=== PATIENT | female | born 1990 | race American Indian/Alaskan Native ===

== ENCOUNTER 2016-07-18 14:54 | Emergency (ER) | payer SELFPAY ==
--- NOTE | 2016-07-18 16:16 | Emergency Department Report ---
Entered by TOYA SHEIKH, acting as scribe for CISCO GEIGER PA. Chief Complaint: Headache Stated Complaint: LT SIDE PAIN HEAD/SHOULDER Time Seen by Provider: 07/18/16 16:00 - HPI History of Present Illness: Patient presents to the ED c/o left facial swelling and pain that began 2 weeks ago. Rates pain a 10/10 in severity. Pt states the pain radiates from left ear down to shoulder. Reports headache. Denies nausea, vomiting, fever, and chills. Notes that the pain "caused a seizure". Notes she went to [facility] 1 month ago for the same complaint and a head CT scan was performed, which was normal. Notes dentist appointment in August 2016. - ROS Review of Systems: All system are negative unless stated in HPI above. - Exam Vital Signs: Vital Signs 07/18/16 15:42 Temperature 98.1 F Pulse Rate 82 Respiratory 18 Rate Blood Pressure 163/98 O2 Sat by Pulse 98 Oximetry Physical Exam: General: well nourished, well developed, nontoxic in appearance, in no acute distress ENT: Bilateral TM is congested with no erythema, no pharyngeal erythema, uvula is midline, no tonsillar exudates, left oral mucosa swollen, missing tooth on lower left side Neck: mild swelling on left side MSE screening note: Focused history and physical exam performed. Due to findings the following was ordered: ED Medical Decision Making - Medical Decision Making Medical decision making: Patient seen by provider in triage area. Appropriate protocol activated and patient to main ED to be seen by physician. ED Disposition for MSE Condition: Stable This documentation as recorded by the scribe,TOYA SHEIKH,accurately reflects the service I personally performed and the decisions made by FELY fox VERONA A, PA.
[2016-07-18 17:09] LABS: Anion Gap 15 mmol/L; Blood Urea Nitrogen 9 mg/dL (7-17); Calcium 9.1 mg/dL (8.4-10.2); Carbon Dioxide 28 mmol/L (22-30); Chloride 98.3 mmol/L (98-107); Glucose 136 mg/dL (65-100); Potassium 4.1 mmol/L (3.6-5.0); Sodium 137 mmol/L (137-145)
[2016-07-18 17:10] LABS: Basophils % (Auto) 0.5 % (0.0-1.8); Eosinophils % (Auto) 5.5 % (0.0-4.3); Hematocrit 34.5 % (30.3-42.9); Hemoglobin 10.7 gm/dl (10.1-14.3); Mean Corpuscular HGB Conc 31 % (30-34); Mean Corpuscular Volume 72 fl (79-97); Platelet Count 317 K/mm3 (140-440); Red Blood Count 4.79 M/mm3 (3.65-5.03); Red Cell Distribution Width 18.6 % (13.2-15.2); White Blood Count 10.8 K/mm3 (4.5-11.0)
[2016-07-18 17:15] LABS: Mean Corpuscular Hemoglobin 22 pg (28-32)
[2016-07-18] MEDS ORDERED: CLEOCIN PO ONE (21:02)
[2016-07-18] MEDS ORDERED: TYLENOL PO ONE (21:02)
--- NOTE | 2016-07-18 21:11 | Emergency Department Report ---
HPI - General Chief Complaint: Headache Time Seen by Provider: 07/18/16 16:13 - HPI HPI: The patient's a 26-year-old female presents for evaluation of headache and face pain. The patient reports headache for the past 2 weeks, on and off, 8/10 in severity, aching in quality, exacerbated with bright lights. The patient also reports greater than one month of left lower jaw and facial pain, moderate to severe, exacerbated with chewing or testing of the face, sharp in quality. She says that she received evaluation of her facial and jaw pain at [place] [facility] with week ago. She states that she received a CT scan of the face that was unremarkable. The patient denies fever, head injury, neck stiffness, hoarseness of the voice, difficulty tolerating secretions, vision or hearing changes, smell or taste changes, paresthesias, facial drooping, slurred speech, or other focal neurological deficit. ED Past Medical Hx - Past Medical History Hx Hypertension: Yes Hx CVA: No Hx Heart Attack/AMI: No Hx Congestive Heart Failure: No Hx Diabetes: Yes Hx Deep Vein Thrombosis: No Hx Pulmonary Embolism: No Hx GERD: No Hx Liver Disease: No Hx Renal Disease: No Hx Sickle Cell Disease: No Hx Arthritis: No Hx Headaches / Migraines: No Hx Seizures: No Hx Kidney Stones: No Hx Psychiatric Treatment: No Hx Asthma: No Hx COPD: No Hx Tuberculosis: No Hx Dementia: No Hx HIV: No Additional medical history: Obesity - Surgical History Hx Coronary Stent: No Hx Open Heart Surgery: No Hx Pacemaker: No Hx Internal Defibrillator: No Hx Cholecystectomy: No Hx Appendectomy: No Hx Breast Surgery: No Additional Surgical History: t&a - Social History Smoking Status: Never Smoker Substance Use Type: None - Medications Home Medications: Home Medications Medication Instructions Recorded Confirmed Last Taken Type Insulin Glargine [Lantus] 10 unit SUB-Q QHS 05/30/15 05/30/15 1 Day Ago History Insulin Lispro [Humalog] 10 unit SQ BID 05/30/15 05/30/15 1 Day Ago History Losartan [Cozaar] 50 mg PO QDAY 05/30/15 05/30/15 1 Day Ago History Albuterol Sulfate [Ventolin HFA] 2 puff IH Q4H PRN #1 hfa.aer.ad 07/02/15 Unknown Rx Azithromycin [Zithromax] 250 mg PO DAILY #1 pkg 07/02/15 Unknown Rx Gentamicin 0.3% Ophth Soln 2 drops OP Q4H #1 bottle 07/02/15 Unknown Rx Dicyclomine [Bentyl] 10 mg PO QID PRN #20 capsule 07/08/15 Unknown Rx Ondansetron [Zofran Odt] 4 mg PO QID PRN #20 tab.rapdis 07/08/15 Unknown Rx Chlorhexidine Mouthwash [Peridex] 15 ml MM BID #1 bottle 07/18/16 Unknown Rx Clindamycin [Clindamycin CAP] 450 mg PO TID #60 capsule 07/18/16 Unknown Rx traMADol [Ultram 50 MG tab] 50 mg PO Q6HR PRN #20 tablet 07/18/16 Unknown Rx ED Review of Systems ROS: Stated complaint: LT SIDE PAIN HEAD/SHOULDER Other details as noted in HPI Constitutional: denies: fever HEENT: denies: throat or neck pain; reports facial pain Respiratory: denies: cough, shortness of breath Cardiovascular: denies: chest pain Endocrine: denies unexplained weight loss or gain Gastrointestinal: denies: abdominal pain, nausea Genitourinary: denies: dysuria Musculoskeletal: denies: leg swelling Skin: denies: rash Neurological: reports headache Hematological/Lymphatic: denies: easy bleeding or easy bruising Psych: denies sadness or hopelessness Physical Exam - Physical Exam Vital Signs: Vital Signs 07/18/16 07/18/16 07/18/16 15:42 19:54 20:14 Temperature 98.1 F 98.4 F Pulse Rate 82 69 Respiratory 18 20 16 Rate Blood Pressure 163/98 Blood Pressure 150/81 [Right] O2 Sat by Pulse 98 99 Oximetry Physical Exam: General: well-nourished, well-developed, no acute distress Head: Normocephalic, atraumatic, no appreciable facial swelling present Eyes: normal sclera, PERRL, EOM intact ENT: Mucous membranes are pink and moist, left lower impacted wisdom tooth present, mild surrounding gingival erythema present, no fluctuance, no appreciable abscess, mild bilateral tonsillar erythema and swelling present, no tonsillar exudates, no pooling of secretions in the posterior oropharynx, no neck stiffness with flexion or extension, no submandibular or neck masses appreciated with palpation Neck: trachea midline, neck supple, No neck stiffness, no cervical adenopathy Respiratory: Breath sounds equal bilaterally, no wheezing, rales, or rhonchi Cardio: S1 and S2 present, no murmurs, rubs, gallops, capillary refill is brisk Abdomen: Normoactive bowel sounds, soft abdomen, no rigidity, no guarding or rebound tenderness Musc: No pitting edema Skin: No rash Neuro: alert oriented x4, normal cognition, speech normal, no facial drooping, no uvula or tongue deviation on protrusion, no deficit with rotation of neck or shoulder shrug, no obvious gross motor deficit in the upper or lower extremities bilaterally, no obvious gross sensation deficit, 2+ symmetric reflexes on DTR testing, no coordination deficit with [id number] testing, romberg negative, patient able to to ambulate without abnormal gait Psych: Normal affect ED Course Vital Signs 07/18/16 07/18/16 07/18/16 15:42 19:54 20:14 Temperature 98.1 F 98.4 F Pulse Rate 82 69 Respiratory 18 20 16 Rate Blood Pressure 163/98 Blood Pressure 150/81 [Right] O2 Sat by Pulse 98 99 Oximetry ED Medical Decision Making - Lab Data Result diagrams: 07/18/16 16:38 07/18/16 16:38 - Medical Decision Making The patient was seen and examined by myself. The patient is placed on a cocoa bean cleaner and continuous pulse ox. On initial evaluation, the patient was found to be in no distress. As there are no neuro deficits or other findings on examination concerning for acute intracranial disease process, and as the patient states that symptoms are consistent with previous headaches, a CAT scan of the head will not be obtained at this time. The patient is given a tablet of Tylenol for her headache and clindamycin for her tonsillitis. Lab results were unremarkable including normal WBC. The patient was reevaluated and reported that their symptoms were markedly improved. The patient is stable for discharge with outpatient follow-up. The patient is given follow-up and return instructions. The patient expressed understanding and agreed with the plan. The patient is discharged in stable condition. Critical care attestation.: If time is entered above; I have spent that time in minutes in the direct care of this critically ill patient, excluding procedure time. ED Disposition Clinical Impression: Acute bacterial tonsillitis, Gingivitis, acute Acute nonintractable headache Qualifiers: Headache type: unspecified Qualified Code(s): R51 - Headache Disposition: DISCHARGED TO HOME OR SELFCARE Is pt being admited?: No Does the pt Need Aspirin: No Condition: Stable Instructions: Gingivitis (ED), Acute Headache (ED), Tonsillitis (ED) Prescriptions: Chlorhexidine Mouthwash [Peridex] 15 ml MM BID #1 bottle Clindamycin [Clindamycin CAP] 450 mg PO TID #60 capsule traMADol [Ultram 50 MG tab] 50 mg PO Q6HR PRN #20 tablet PRN Reason: Pain Referrals: PRIMARY CARE, [Primary Care Provider] - 3-5 Days Time of Disposition: 21:04
[2016-07-18 22:39] VITALS: BP 149/75
== END 2016-07-18 22:38 | disposition home or self-care (01) ==
LOC: ED 14:54
DX: J03.90 Acute tonsillitis, unspecified (principal); K05.00 Acute gingivitis, plaque induced; R51 Headache; I10 Essential (primary) hypertension; E11.9 Type 2 diabetes mellitus without complications; Z79.4 Long term (current) use of insulin
CPT/HCPCS: 36415; 80048; 85025; 99284